=== PATIENT | female | born 2000 | race Caucasian/White ===

== ENCOUNTER 2021-01-24 14:48 | Emergency (ER) | payer OTHER ==
[~2021-01-24] VITALS: Ht 160 cm; Wt 44.5 kg
[2021-01-24] MEDS ORDERED: BUSPIRONE HCL10 MG PO (15:10)
[2021-01-24 15:57] LABS: ABSOLUTE EOSINOPHILS 0.1 thou/uL (0.0-0.7); ABSOLUTE LYMPHOCYTES 1.4 thou/uL (0.8-5.3); ABSOLUTE MONOCYTES 0.4 thou/uL (0.0-1.2); ABSOLUTE NEUTROPHILS 4.3 thou/uL (1.6-8.1); BASOPHILS 0.7 %; EOSINOPHILS 1.5 %; HEMATOCRIT 41.1 % (37.0-47.0); HEMOGLOBIN 13.6 gm/dL (12.0-15.0); LYMPHOCYTES 21.8 %; MCH 25.1 pg (26.0-34.0); MCHC 33.1 g/dL (28.0-37.0); MCV 75.9 fL (80.0-100.0); MPV 8.4 fl. (7.2-11.1); NUCLEATED RBCS 0 /100WBC; PLATELET COUNT* 214 thou/uL (150-400); RBC 5.41 mil/uL (4.20-5.00); RDW-CV 14.8 % (10.5-14.5); WBC 6.3 thou/uL (4.0-11.0)
[2021-01-24 16:05] LABS: CALCIUM 9.3 mg/dL (8.5-10.1); CREATININE 0.8 mg/dL (0.6-1.3); POTASSIUM 3.6 mmol/L (3.5-5.1)
[2021-01-24 16:11] LABS: ALBUMIN 3.9 g/dL (3.4-5.0); TOTAL BILIRUBIN 0.3 mg/dL (<0.1-1.0); TOTAL PROTEIN 7.8 g/dL (6.4-8.2)
[2021-01-24 16:54] LABS: URINE BILIRUBIN NEGATIVE (Negative); URINE BLOOD 2+ (Negative); URINE CLARITY CLEAR; URINE COLOR YELLOW; URINE GLUCOSE-RANDOM NEGATIVE (Negative); URINE KETONES NEGATIVE (Negative); URINE LEUKOCYTES-REFLEX NEGATIVE (Negative); URINE NITRITE-REFLEX NEGATIVE (Negative); URINE PROTEIN NEGATIVE (Negative); URINE UROBILINOGEN 0.2 E.U./dl (0.2-1.0)
[2021-01-24 17:11] LABS: BACTERIA-REFLEX None Seen /HPF (None Seen); SQUAMOUS 0-3 Few /LPF (0-3); URINE RBC 0-2 Rare /HPF (0-2); URINE WBC-REFLEX None Seen /HPF (0-5)
[2021-01-24 17:12] LABS: CASTS None Seen /LPF (None Seen); CRYSTALS None Seen /LPF (None Seen)
[2021-01-24 17:46] VITALS: BP 125/65
== END 2021-01-24 17:46 | disposition home or self-care (01) ==
LOC: M.ERS 14:48
PROVIDERS: Family Medicine; Nurse Practitioner Family
DX: R10.2 Pelvic and perineal pain (principal); N83.202 Unspecified ovarian cyst, left side; F41.9 Anxiety disorder, unspecified; Z79.899 Other long term (current) drug therapy